=== PATIENT | male | born 1955 | race Caucasian/White ===

== ENCOUNTER → 2016-03-14 | Emergency (ER) | payer OTHER ==
[~2016-03-14] MED LIST: IBUPROFEN 600 MG TABLET (FP) PO ONE; TAMSULOSIN HCL 0.4 MG CAP.ER.24H (FP) ONE; predniSONE 20 MG TABLET (UD) ONE
[2016-03-14 11:50] VITALS: BMI 32.2
--- NOTE | 2016-03-14 14:12 | PDOC ---
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 The patient states he has been taking his medication for pain with little alleviation. The patient also reports possible increase in urinary frequency? He denies chest pain, shortness of breath, headache and dizziness. He denies fever, chills, nausea, vomit, diarrhea and constipation. He denies dysuria, frequency, urgency and hematuria. Allergies: NKDA <Alexandra Yanez - Last Filed: 03/14/16 14:25> <Renan Queen - Last Filed: 03/14/16 16:37> - General Chief Complaint: Back Pain Stated Complaint: LOWER BACK PAIN Time Seen by Provider: 03/14/16 12:43 Past History <Alexandra Yanez - Last Filed: 03/14/16 14:25> - Past Medical History Anemia: No Asthma: No Cancer: No COPD: No CHF: No Diabetes: Yes Dialysis: No GI Disorders: No Disorders: No Suicide Attempt (Hx): No Seizures: No - Surgical History Orthopedic Surgery: No - Immunization History Immunization Up to Date: Yes - Psycho/Social/Smoking Cessation Hx Anxiety: No Suicidal Ideation: No Smoking History: Never smoked Have you smoked in the past 12 months: No Number of Cigarettes Smoked Daily: 0 Information on smoking cessation initiated: No Hx Alcohol Use: No Drug/Substance Use Hx: No Substance Use Type: None <Renan Queen - Last Filed: 03/14/16 16:37> - Past Medical History Allergies/Adverse Reactions: Allergies Allergy/AdvReac Type Severity Reaction Status Date / Time No Known Allergies Allergy Verified 03/14/16 11:45 Home Medications: Ambulatory Orders NK [No Known Home Medication] 03/14/16 Review of Systems - Review of Systems Able to Perform ROS?: Yes Comments:: 03/14/16 14:25 CONSTITUTIONAL: Absent: fever, chills, diaphoresis, generalized weakness, malaise, loss of appetite HEENT: Absent: rhinorrhea, nasal congestion, throat pain, throat swelling, difficulty swallowing, mouth swelling, ear pain, eye pain, visual Changes CARDIOVASCULAR: Absent: chest pain, syncope, palpitations, irregular heart rate, lightheadedness , peripheral edema RESPIRATORY: Absent: cough, shortness of breath, dyspnea with exertion, orthopnea, wheezing, stridor, hemoptysis GASTROINTESTINAL: Absent: abdominal pain, abdominal distension, nausea, vomiting, diarrhea, constipation, melena, hematochezia GENITOURINARY: Absent: dysuria, frequency, urgency, hesitancy, hematuria, flank pain, genital pain MUSCULOSKELETAL: (+) back pain. Absent: arthralgia, joint swelling SKIN: Absent: rash, itching, pallor HEMATOLOGIC/IMMUNOLOGIC: Absent: easy bleeding, easy bruising, lymphadenopathy, frequent infections ENDOCRINE: Absent: unexplained weight gain, unexplained weight loss, heat intolerance, cold intolerance NEUROLOGIC: Absent: headache, focal weakness or paresthesias, dizziness, unsteady gait, seizure, mental status changes, bladder or bowel incontinence PSYCHIATRIC: Absent: anxiety, depression, suicidal or homicidal ideation, hallucinations. <Alexandra Yanez - Last Filed: 03/14/16 14:25> *Physical Exam - Vital Signs Last Vital Signs Temp Pulse Resp BP Pulse Ox 98.4 F 95 H 20 137/93 96 03/14/16 11:46 03/14/16 11:46 03/14/16 11:46 03/14/16 11:46 03/14/16 11:46 - Physical Exam Comments: 03/14/16 14:26 GENERAL: Well developed, well nourished. Awake and alert. No acute distress. HEENT: Normocephalic, atraumatic. PERRLA, EOMI. No conjunctival pallor. Sclera are non- icteric. Moist mucous membranes. Oropharynx is clear. NECK: Supple. Full ROM. No JVD. Carotid pulses 2+ and symmetric, without bruits. No thyromegaly. No lymphadenopathy. CARDIOVASCULAR: Regular rate and rhythm. No murmurs, rubs, or gallops. Distal pulses are 2+ and symmetric. PULMONARY: No evidence of respiratory distress. Lungs clear to auscultation bilaterally. No wheezing, rales or rhonchi. ABDOMINAL: Soft. Non-tender. Non-distended. No rebound or guarding. No organomegaly. Normoactive bowel sounds. MUSCULOSKELETAL Normal range of motion at all joints. No bony deformities or tenderness. No CVA tenderness. EXTREMITIES: No cyanosis. No clubbing. No edema. No calf tenderness. SKIN: Warm and dry. Normal capillary refill. No rashes. No jaundice. NEUROLOGICAL: Alert, awake, appropriate. Cranial nerves 2-12 intact. Normoreflexic in the upper and lower extremities. Normal speech. Toes are down-going bilaterally. Gait is normal without ataxia. PSYCHIATRIC: Cooperative. Good eye contact. Appropriate mood and affect. <Alexandra Yanez - Last Filed: 03/14/16 14:25> - Vital Signs Last Vital Signs Temp Pulse Resp BP Pulse Ox 98.4 F 95 H 20 137/93 96 03/14/16 11:46 03/14/16 11:46 03/14/16 11:46 03/14/16 11:46 03/14/16 11:46 <Renan Queen - Last Filed: 03/14/16 16:37> ED Treatment Course - ADDITIONAL ORDERS Additional order review: Laboratory Results 03/14/16 14:00 Urine Color Straw Urine Appearance Clear Urine pH 5.0 Ur Specific [place] 1.036 H Urine Protein Negative Urine Glucose (UA) 3+ H Urine Ketones 2+ H Urine Blood 1+ H Urine Nitrite Negative Urine Bilirubin Negative Urine Urobilinogen Negative Ur Leukocyte Esterase 2+ H - Medications Given in the ED: ED Medications Discontinued Medications Generic Name Dose Route Start Last Admin Trade Name Freq PRN Reason Stop Dose Admin Ibuprofen 600 mg 03/14/16 14:11 03/14/16 14:14 Motrin - PO 03/14/16 14:12 600 mg ONCE ONE Administration <Alexandra Yanez - Last Filed: 03/14/16 14:25> *DC/Admit/Observation/Transfer - Attestations Scribe Attestion: 03/14/16 14:26 Documentation prepared by Alexandra Yanez, acting as medical equipment technician for Renan Queen MD, MD <Alexandra Yanez - Last Filed: 03/14/16 14:25> - Discharge Dispostion Admit: No <Renan Queen - Last Filed: 03/14/16 16:37> Diagnosis at time of Disposition: Low back pain - Discharge Dispostion Disposition: HOME Condition at time of disposition: Stable
[2016-03-14 14:21] LABS: URINE APPEARANCE CLEAR; URINE BILIRUBIN NEGATIVE (NEGATIVE); URINE COLOR STRAW; URINE GLUCOSE (UA) 3+ (NEGATIVE); URINE KETONE 2+ (NEGATIVE); URINE NITRITE NEGATIVE (NEGATIVE); URINE PROTEIN NEGATIVE (NEGATIVE); URINE UROBILINOGEN NEGATIVE E.U./dl (0.2-1.0)
[2016-03-14 14:22] LABS: URINE BLOOD 1+ (NEGATIVE); URINE LEUK ESTERASE 2+ (NEGATIVE)
[2016-03-14 14:25] LABS: URINE MUCUS RARE; URINE RBC 15 /hpf (0-3); URINE WBC 31 /hpf (3-5)
[2016-03-14 16:37] VITALS: BP 124/70; PULSE 84; TEMP 98.3
== END | disposition home or self-care (01) ==
LOC: JERFT 11:37 → JER 11:37
DX: M54.5 Low back pain (principal); E11.9 Type 2 diabetes mellitus without complications; Z79.84 Long term (current) use of oral hypoglycemic drugs
CPT/HCPCS: 72131-TC; 81003; 81015; 87086; 99283-25

== ENCOUNTER 2017-01-31 10:36 | Emergency (ER) | payer SELFPAY ==
[2017-01-31 10:56] VITALS: BP 146/82; PULSE 94; TEMP 97.9; BMI 28.9
--- NOTE | 2017-01-31 11:32 | PDOC ---
History of Present Illness - General Chief Complaint: Eye Problem Stated Complaint: LT EYE PAIN Time Seen by Provider: 01/31/17 11:29 History Source: Patient Exam Limitations: No Limitations - History of Present Illness Initial Comments: 01/31/17 11:31 CHIEF COMPLAINT: HISTORY OF PRESENT ILLNESS: REVIEW OF SYSTEMS: GENERAL/CONSTITUTIONAL: No fever or chills. No weakness. No weight change. HEAD, EYES, EARS, NOSE AND THROAT: No change in vision. Drainage and pruritus to right eye. No ear pain or discharge. No sore throat. RESPIRATORY: No cough, wheezing, or hemoptysis. SKIN : No rash or easy bruising. NEUROLOGIC: No headache, vertigo, loss of consciousness, or loss of sensation. HEMATOLOGIC/LYMPHATIC: No lymphadenopathy ALLERGIC/IMMUNOLOGIC: No hives or skin allergy. No latex allergy. PHYSICAL EXAM: GENERAL: The patient is awake, alert, and fully oriented, in no acute distress. HEAD: Normal with no signs of trauma. EYES: Pupils equal, round and reactive to light, extraocular movements intact, sclera anicteric, conjunctiva injected, extending to limbus after fluorescein staining, no corneal abrasion noted. ENT: Ears normal, nares patent, oropharynx clear without exudates. Moist mucous membranes. NECK: Normal range of motion, supple without lymphadenopathy, JVD, or masses. LUNGS: Breath sounds equal, clear to auscultation bilaterally. No wheezes, and no crackles. NEUROLOGICAL: Cranial nerves II through XII grossly intact. Normal speech, normal gait. SKIN: No erythema no facial edema. Warm, Dry, normal turgor, no rashes or lesions noted. Past History - Past Medical History Allergies/Adverse Reactions: Allergies Allergy/AdvReac Type Severity Reaction Status Date / Time No Known Allergies Allergy Verified 01/31/17 10:53 Home Medications: Ambulatory Orders NK [No Known Home Medication] 01/31/17 Anemia: No Asthma: No Cancer: No COPD: No CHF: No Diabetes: Yes Dialysis: No GI Disorders: No Disorders: No Seizures: No - Surgical History Orthopedic Surgery: No - Immunization History Immunization Up to Date: Yes - Suicide/Smoking/Psychosocial Hx Smoking History: Never smoked Have you smoked in the past 12 months: No Number of Cigarettes Smoked Daily: 0 Hx Alcohol Use: No Drug/Substance Use Hx: No Substance Use Type: None *Physical Exam - Vital Signs Last Vital Signs Temp Pulse Resp BP Pulse Ox 97.9 F 94 H 19 146/82 97 01/31/17 10:54 01/31/17 10:54 01/31/17 10:54 01/31/17 10:54 01/31/17 10:54
--- NOTE | 2017-01-31 13:09 | PDOC ---
Attending Attestation - HPI HPI: 01/31/17 13:17 The patient is a 61 year old male with no significant PMH who presents to the emergency department with left eye tearing and a headache beginning at approximately 3PM yesterday. He also reports seeing the shadow of a person cross his vision once at 3PM yesterday, but is unable to characterize what he saw more. The patient also presents to the ED with left sided facial drooping. Allergies: NKA <Senthil Gama - Last Filed: 01/31/17 14:06> - Resident Resident Name: Hannah Faust - ED Attending Attestation I have performed the following: I have examined & evaluated the patient, The case was reviewed & discussed with the resident, I agree w/resident's findings & plan, Exceptions are as noted - Physicial Exam PE: GENERAL: Awake, alert, and fully oriented, in no acute distress HEAD: No signs of trauma EYES: PERRLA, EOMI, sclera anicteric, conjunctiva clear ENT: Auricles normal inspection, hearing grossly normal, nares patent, oropharynx clear without exudates. Moist mucosa NECK: Normal ROM, supple, no lymphadenopathy, JVD, or masses LUNGS: Breath sounds equal, clear to auscultation bilaterally. No wheezes, and no crackles HEART: Regular rate and rhythm, normal S1 and S2, no murmurs, rubs or gallops ABDOMEN: Soft, nontender, normoactive bowel sounds. No guarding, no rebound. No masses EXTREMITIES: Normal range of motion, no edema. No clubbing or cyanosis. No cords, erythema, or tenderness NEUROLOGICAL: Pt with L facial droop involving forehead. No sinus tenderness. Remainder of cranial nerves intact. Motor and sensation otherwise intact. Gait stable. SKIN: Warm, Dry, normal turgor, no rashes or lesions noted. - Medical Decision Making Sxs consistent with peripheral Zhong's palsy. The recent vision changes are unclear, and would suggest retinal pathology, as he saw a "shadow" pass by a few days ago. This does not appear to be connected to the Zhong's palsy. No symptoms of stroke. Will DC with ophtho f/u. <Marianela Judge - Last Filed: 01/31/17 16:50> NIH Stroke Scale - Last Known Well Date/Time & Onset Date Last Known Well: 01/31/17 - Initial Evaluation Level of consciousness: Alert Ask patient the month and their age: Answers both correctly Ask patient to open & close eyes; make fist and let go: Obeys both correctly Best gaze (horizontal eye movement): Normal Visual field testing: No visual field loss Facial paresis (Show teeth/raise eyebrows/close eyes tight): Complete paralysis of one or both sides (Upper and lower face) Motor Function: Left Arm: Normal Motor Function: Right Arm: Normal (extends arm 90 (or 45) degrees for 10 seconds without drift Motor Function: Left Leg: Normal (extends leg 30 degrees for 5 seconds without drift) Motor Function: Right Leg: Normal (extends leg 30 degrees for 5 seconds without drift) Limb Ataxia: No ataxia Sensory(Use pinprick test arms,legs,trunk,face/side to side): Normal Best language (Describe picture, name items, read sentences): No Aphasia Dysarthria (read several words): Normal articulation Extinction and Inattention: No abnormality - Total Score NIH Stroke Scale Score: 3 <Marianela Judge - Last Filed: 01/31/17 16:50>
--- NOTE | 2017-01-31 13:22 | PDOC ---
History of Present Illness - General Chief Complaint: Eye Problem Stated Complaint: LT EYE PAIN Time Seen by Provider: 01/31/17 11:29 History Source: Patient Exam Limitations: No Limitations - History of Present Illness Initial Comments: This is a 61 YOM with h/o uncontrolled IDDM (not on medications and no PCP presently) and thyroid surgery in 2006 who presents c/o left-sided facial droop , left eye tearing, frontal and temporal headache for the past three days. He notes that at the onset, he saw a shadowy figure pass through his vision. He had just showered and was laying down to sleep at that time. The headache started after that and ramped up to 5/10 very quickly, and has persisted at that intensity since then. The headache is located at both temples and the forehead and the top of the head. He additionally notes hot flashes, cough, runny nose, and diffuse back pain. He denies any neck pain, fever, chills, nausea, vomiting, CP, abdominal pain, SOB, dysuria, or other symptoms. NIH Stroke Scale - Last Known Well Date/Time & Onset Date Last Known Well: 01/28/17 Time Last Known Well: 03:00 - Initial Evaluation Level of consciousness: Alert Ask patient the month and their age: Answers both correctly Ask patient to open & close eyes; make fist and let go: Obeys both correctly Best gaze (horizontal eye movement): Normal Visual field testing: No visual field loss Facial paresis (Show teeth/raise eyebrows/close eyes tight): Partial paralysis ( total or near paralysis of lower face) Motor Function: Left Arm: Normal Motor Function: Right Arm: Normal (extends arm 90 (or 45) degrees for 10 seconds without drift Motor Function: Left Leg: Normal (extends leg 30 degrees for 5 seconds without drift) Motor Function: Right Leg: Normal (extends leg 30 degrees for 5 seconds without drift) Limb Ataxia: No ataxia Sensory(Use pinprick test arms,legs,trunk,face/side to side): Normal Best language (Describe picture, name items, read sentences): No Aphasia Dysarthria (read several words): Normal articulation Extinction and Inattention: No abnormality - Total Score NIH Stroke Scale Score: 2 Past History - Past Medical History Allergies/Adverse Reactions: Allergies Allergy/AdvReac Type Severity Reaction Status Date / Time No Known Allergies Allergy Verified 01/31/17 10:53 Home Medications: Ambulatory Orders NK [No Known Home Medication] 01/31/17 Anemia: No Asthma: No Cancer: No COPD: No CHF: No Diabetes: Yes Dialysis: No GI Disorders: No Disorders: No Seizures: No - Surgical History Orthopedic Surgery: No - Immunization History Immunization Up to Date: Yes - Suicide/Smoking/Psychosocial Hx Smoking History: Never smoked Have you smoked in the past 12 months: No Number of Cigarettes Smoked Daily: 0 Hx Alcohol Use: No Drug/Substance Use Hx: No Substance Use Type: None Review of Systems - Review of Systems Constitutional: Yes: Other (hot flashes). No: Chills, Fever, Unexplained wgt Loss HEENTM: Yes: Tearing (left). No: Nose Congestion, Throat Pain Respiratory: Yes: Cough. No: Shortness of Breath Cardiac (ROS): No: Chest Pain, Palpitations ABD/GI: No: Constipated, Diarrhea, Nausea, Vomiting : No: Burning, Dysuria Musculoskeletal: Yes: Back Pain. No: Neck Pain Integumentary: No: Bruising, Rash Neurological: Yes: Headache, Weakness (left face). No: Dizziness Endocrine: No: Unexplained Weight Gain, Unexplained Weight Loss *Physical Exam - Vital Signs Last Vital Signs Temp Pulse Resp BP Pulse Ox 97.9 F 94 H 19 146/82 97 01/31/17 10:54 01/31/17 10:54 01/31/17 10:54 01/31/17 10:54 01/31/17 10:54 - Physical Exam General Appearance: Yes: Nourished, Other (adult male Macedonian-speaking patient sitting in chair next to hospital bed, answering questions appropriately). No: Apparent Distress HEENT: positive: EOMI, ASHU, Normal Voice, TMs Normal, Hearing Grossly Normal, Vásquez (slight hyperpigmented 2 mm area to exterior ear just inferior/posterior to EAC opening), Other (mild bilateral temporal ttp, left eye mild scleral injection with mild tearing of the eye, left facial droop involving the frontalis concerning for Zhong's palsy). negative: Scleral Icterus (R), Scleral Icterus (L), Muffled/Hoarse voice, Pharyngeal Erythema, Nasal Congestion, Rhinorrhea, Sinus Tenderness, TM Bulging, TM Dull, TM Erythema, Lesions, Excessive drooling Neck: positive: Trachea midline, Supple. negative: Tender, Rigid Respiratory/Chest: positive: Lungs Clear, Normal Breath Sounds. negative: Respiratory Distress, Crackles, Rhonchi, Stridor, Wheezing Cardiovascular: positive: Regular Rhythm, Regular Rate. negative: Murmur Gastrointestinal/Abdominal: positive: Normal Bowel Sounds, Soft. negative: Tender, Organomegaly, Pulsatile Mass, Guarding Musculoskeletal: positive: Normal Inspection. negative: Decreased Range of Motion, Vertebral Tenderness Extremity: positive: Normal Capillary Refill, Normal Inspection, Normal Range of Motion. negative: Tender, Cyanosis Integumentary: positive: Normal Color, Dry, Warm. negative: Erythema, Rash, Bruising Neurologic: positive: single corner cutter II-XII NML intact, Fully Oriented, Alert, Normal Mood/ Affect, Normal Response, Motor Strength 5/5 Medical Decision Making - Medical Decision Making 61 YOM with uncontrolled IDDM p/w 3 days of left facial droop involving frontalis and left eye watering. Diffuse headache as well but this is mild and patient has had no additional neurological symptoms. On exam VS wnl and the patient does have exam consistent with Zhong's palsy. Left eye slight injection and tearing but acuity is symmetric bilaterally, NIH scale is 2 based on facial paresis. DDX IBNLT Zhong's palsy (idiopathic vs. Lyme disease vs. zoster, etc). CVA considered but very unlikely given the patient's frontalis involvement of the facial droop, and NIH scale. Ordered are eyedrops for lubrication. 01/31/17 14:19 The patient is not a good candidate for Prednisone therapy for this Zhong's palsy. He is not followed by a PCP and takes no medications for his diagnosis of IDDM. The risks of prednisone outweigh the benefits d/t risk of severe hyperglycemia. The patient is given visine eyedrops here in the ED and instructed to use 2 ggt OS qid. He is instructed not to rub his eye and to f/u with ophtho (phone number written on DC papers). Return precautions are discussed. *DC/Admit/Observation/Transfer Diagnosis at time of Disposition: Zhong's palsy - Discharge Dispostion Disposition: HOME Condition at time of disposition: Stable Admit: No - Referrals - Patient Instructions Printed Discharge Instructions: DI for Zhong's Palsy Additional Instructions: Carter visto en la marion emergencia por debilidad del lado izquierda de la maría elena, dolor de la jose, y natasha lloroso en la izquierda. Engle examen es consistente con un problema del nervio, que no es un estroke. No creemos que tiene un derrame cerebral o un accidente cerebrovascular. Es muy importante sequir con un oculista (doctor de los ojos). Por favor tambien use las gotas lubricantes que estamos dando. Use 2 gotas en el natasha izquierda, 4 veces al gilbert, o cuendo se siente que el natasha es muy seco. Por favor regrese para cualquier sintoma nuevo o empeoramiento carlos perdida de vision, dolor muy iftikhar que no puede controlar con Tylenol o Motrin, empeoramiento de la debilidad, erupcion cutanea dolorosa en la maría elena o del oido, o cualquier otra sintoma. Print Language: YAKUT - Post Discharge Activity
[2017-01-31] MEDS ORDERED: TETRAHYDROZOLINE HCL 1 DROP DROPS OS ONE (13:57)
[2017-01-31] MEDS ORDERED: NAPHAZOLINE/PHENIRAMINE OPHTHALMIC 15 ML BOTTLE OS PRN (15:08)
== END 2017-01-31 15:20 | disposition home or self-care (01) ==
LOC: JERFT 10:36 → JER 10:36
DX: G51.0 Bell's palsy (principal); E10.65 Type 1 diabetes mellitus with hyperglycemia
CPT/HCPCS: 99282-25

== ENCOUNTER 2018-07-17 13:49 | Emergency (ER) | payer SELFPAY ==
[2018-07-17 13:59] VITALS: BP 148/83; PULSE 112; TEMP 99.2; BMI 31.2
--- NOTE | 2018-07-17 13:59 | PDOC ---
Rapid Medical Evaluation Chief Complaint: Pain Time Seen by Provider: 07/17/18 13:56 Medical Evaluation: Allergies Allergy/AdvReac Type Severity Reaction Status Date / Time No Known Allergies Allergy Verified 07/17/18 13:56 07/17/18 13:56 I have performed a brief in-person evaluation of this patient. The patient presents with a chief complaint of: 2 weeks abd pain Pertinent physical exam findings: I have ordered the following: CBC, CMP, Etoh , Lipase/Amylase , UA The patient will proceed to the ED for further evaluation. Discharge Disposition - Diagnosis Abdominal pain - Referrals - Patient Instructions - Post Discharge Activity
[2018-07-17] MEDS ORDERED: ACETAMINOPHEN 1000 MG/100 ML VIAL (NON FORMULARY) IVPB ONE (14:24)
[2018-07-17] MEDS ORDERED: SODIUM CHLORIDE 1,000 ML IV STA ×2 (14:24→16:48)
[2018-07-17] MEDS ORDERED: ACETAMINOPHEN INJECTION 100 ML IVPB ONE (15:13)
[2018-07-17 15:29] LABS: BASO % 0.9 % (0-2.0); EOS % 1.2 % (0-4.5); HEMATOCRIT 44.3 % (35.4-49); HEMOGLOBIN 14.8 GM/dL (11.7-16.9); MCH 30.9 pg (25.7-33.7); MCHC 33.3 g/dl (32.0-35.9); MEAN CELL VOLUME 92.7 fl (80-96); MEAN PLT VOLUME 8.8 fl (7.5-11.1); MONO % 10.9 % (3.8-10.2); PLATELET COUNT 222 K/MM3 (134-434); RBC 4.78 M/mm3 (4.00-5.60); RDW 12.9 % (11.9-15.9); WHITE BLOOD COUNT 8.3 K/mm3 (4.0-10.0)
[2018-07-17 16:26] LABS: ALBUMIN 3.6 g/dl (3.4-5.0); ALK PHOS 186 U/L (45-117); BILIRUBIN,TOTAL 0.5 mg/dL (0.2-1); BLOOD UREA NITROGEN 15 mg/dL (7-18); CALCIUM 9.2 mg/dL (8.5-10.1); CHLORIDE 99 mmol/L (98-107); CO2 26 mmol/L (21-32); CREATININE 0.7 mg/dL (0.55-1.3); LIPASE 382 U/L (73-393); SGPT/ALT 26 U/L (13-61); SODIUM 130 mmol/L (136-145); TOT PROT 8.3 g/dl (6.4-8.2)
[2018-07-17 16:27] LABS: ANION GAP 6 MMOL/L (8-16); SGOT/AST 54 U/L (15-37)
[2018-07-17 16:41] LABS: GLUCOSE,RANDOM 462 mg/dL (74-106)
--- NOTE | 2018-07-17 17:21 | PDOC ---
History of Present Illness - General Chief Complaint: Pain Stated Complaint: ABDOMINAL PAIN Time Seen by Provider: 07/17/18 13:56 History Source: Patient Exam Limitations: No Limitations - History of Present Illness Travel History: No Initial Comments: 07/17/18 16:21 63-year-old male with history of alcohol abuse and diabetes presents to ED with complaints of generalized abdominal cramping greater in the epigastric region fluid past 2 weeks along with dry cough worsen night for the past week. Patient denies recent travel, recent illness, recent change in medication. Patient states does not take his diabetic medication as prescribed and periodically forgets to take it and skips a day. patient denies chest pain, shortness of breath, nausea, change in urine pattern, diarrhea but does state mild frontal headache 2 days ago which resolved after resting. Timing/Duration: reports: changing over time Quality: reports: mild, cramping Abdominal Pain Onset Location: reports: generalized abdomen Pain Radiation: reports: epigastric Activities at Onset: reports: none Aggravating Factors: improves with: None Alleviating Factors: improves with: None Past History - Past Medical History Allergies/Adverse Reactions: Allergies Allergy/AdvReac Type Severity Reaction Status Date / Time No Known Allergies Allergy Verified 07/17/18 13:56 Home Medications: Ambulatory Orders NK [No Known Home Medication] 01/31/17 Anemia: No Asthma: No Cancer: No COPD: No CHF: No Diabetes: Yes Dialysis: No GI Disorders: No Disorders: No Psychiatric Problems: Yes (drinks 2 beer daily) Seizures: No - Surgical History Orthopedic Surgery: No - Immunization History Immunization Up to Date: Yes - Suicide/Smoking/Psychosocial Hx Smoking History: Never smoked Have you smoked in the past 12 months: No Number of Cigarettes Smoked Daily: 0 Information on smoking cessation initiated: No Hx Alcohol Use: No Drug/Substance Use Hx: No Substance Use Type: None Patient Lives Alone: No Lives with/in: spouse/SO Review of Systems - Review of Systems Able to Perform ROS?: Yes Constitutional: Yes: Weakness HEENTM: No: Symptoms Reported Respiratory: Yes: Cough Cardiac (ROS): No: Symptoms Reported ABD/GI: Yes: Abdominal cramping. No: Constipated, Diarrhea, Nausea, Vomiting : No: Symptoms Reported Musculoskeletal: No: Symptoms Reported Integumentary: No: Symptoms Reported Neurological: Yes: Headache (resolved) *Physical Exam - Vital Signs Last Vital Signs Temp Pulse Resp BP Pulse Ox 99.2 F 112 H 16 148/83 100 07/17/18 13:56 07/17/18 13:56 07/17/18 13:56 07/17/18 13:56 07/17/18 13:56 ED Treatment Course - LABORATORY CBC & Chemistry Diagram: 07/17/18 15:00 07/17/18 15:00 - ADDITIONAL ORDERS Additional order review: Laboratory Results 07/17/18 15:00 Sodium 130 L Potassium No Result Required. Chloride 99 Carbon Dioxide 26 Anion Gap 6 L BUN 15 Creatinine 0.7 Est GFR (CKD-EPI)AfAm 117.22 Est GFR (CKD-EPI)NonAf 101.14 Random Glucose 462 H* Calcium 9.2 Total Bilirubin 0.5 AST 54 H ALT 26 Alkaline Phosphatase 186 H Total Protein 8.3 H Albumin 3.6 Lipase 382 07/17/18 15:00 RBC 4.78 MCV 92.7 MCHC 33.3 RDW 12.9 MPV 8.8 Neutrophils % 68.0 Lymphocytes % 19.0 D Monocytes % 10.9 H Eosinophils % 1.2 Basophils % 0.9 - RADIOLOGY Radiology Studies Ordered: Category Date Time Status ABDOMEN & PELVIS CT WITH CONTR [CT] Stat CT Scan 07/17/18 14:59 Ordered - Medications Given in the ED: ED Medications Discontinued Medications Generic Name Dose Route Start Last Admin Trade Name Freq PRN Reason Stop Dose Admin Acetaminophen 1,000 mg 07/17/18 14:24 07/17/18 15:20 Ofirmev Injection - IVPB 07/17/18 14:25 1,000 mg ONCE ONE Administration Sodium Chloride 1,000 mls @ 1,000 mls/hr 07/17/18 14:24 07/17/18 15:20 Normal Saline - IV 07/17/18 15:23 1,000 mls/hr ASDIR STA Administration Medical Decision Making - Medical Decision Making 07/17/18 16:26 Chief complaint: Abdominal pain for the past 2 weeks without fever, chills but states has had a dry cough at night for the past week and had of episodic headache 3 days ago patient is a diabetic but feels to take his medication on a daily basis. Patient also drinks daily Exam. Patient is not intoxicated but with noted mildly elevated heart rate and blood pressure without positive DTs Plan: Likely dehydrated will order labs, urine, IV fluids and abdominal CT 07/17/18 17:27 Laboratory Tests 07/17/18 07/17/18 15:00 15:00 Random Glucose 462 H* Total Bilirubin 0.5 AST 54 H ALT 26 Alkaline Phosphatase 186 H Total Protein 8.3 H Lipase 382 Influenza A (Rapid) Negative Influenza B (Rapid) Negative Laboratory Tests 07/17/18 15:00 WBC 8.3 Hgb 14.8 Hct 44.3 MCV 92.7 Absolute Neuts (auto) 5.6 Monocytes % 10.9 H 07/17/18 17:27 *DC/Admit/Observation/Transfer Diagnosis at time of Disposition: Abdominal pain - Referrals - Patient Instructions - Post Discharge Activity
[2018-07-17 17:22] LABS: URINE APPEARANCE CLEAR; URINE BILIRUBIN NEGATIVE (NEGATIVE); URINE COLOR YELLOW; URINE GLUCOSE (UA) 3+ (NEGATIVE); URINE KETONE NEGATIVE (NEGATIVE); URINE LEUK ESTERASE NEGATIVE (NEGATIVE); URINE NITRITE NEGATIVE (NEGATIVE); URINE PROTEIN NEGATIVE (NEGATIVE); URINE UROBILINOGEN 0.2 mg/dL (0.2-1.0)
[2018-07-17 18:18] LABS: BILIRUBIN,TOTAL 0.4 mg/dL (0.2-1); CALCIUM 7.8 mg/dL (8.5-10.1); CREATININE 0.5 mg/dL (0.55-1.3); POTASSIUM 3.5 mmol/L (3.5-5.1); TOT PROT 6.5 g/dl (6.4-8.2)
--- NOTE | 2018-07-17 19:56 | PDOC ---
*Physical Exam - Vital Signs Last Vital Signs Temp Pulse Resp BP Pulse Ox 99.2 F 112 H 16 148/83 100 07/17/18 13:56 07/17/18 13:56 07/17/18 13:56 07/17/18 13:56 07/17/18 13:56 - Physical Exam General Appearance: Yes: Appropriately Dressed. No: Apparent Distress HEENT: positive: Normal ENT Inspection Neck: positive: Trachea midline Respiratory/Chest: positive: Lungs Clear, Normal Breath Sounds. negative: Respiratory Distress, Accessory Muscle Use Cardiovascular: positive: Regular Rhythm, Regular Rate. negative: Edema, Murmur Gastrointestinal/Abdominal: positive: Normal Bowel Sounds, Soft, Tenderness ( mild epigastric) Musculoskeletal: positive: Normal Inspection. negative: CVA Tenderness ED Treatment Course - LABORATORY CBC & Chemistry Diagram: 07/17/18 15:00 07/17/18 17:00 - ADDITIONAL ORDERS Additional order review: Laboratory Results 07/17/18 07/17/18 07/17/18 17:00 15:00 14:30 Sodium 138 130 L Potassium 3.5 No Result Required. Chloride 106 99 Carbon Dioxide 24 26 Anion Gap 7 L 6 L BUN 13 15 Creatinine 0.5 L 0.7 Est GFR (CKD-EPI)AfAm 134.61 117.22 Est GFR (CKD-EPI)NonAf 116.14 101.14 Random Glucose 311 H* 462 H* Calcium 7.8 L 9.2 Total Bilirubin 0.4 0.5 AST 11 L 54 H ALT 19 26 Alkaline Phosphatase 139 H 186 H Total Protein 6.5 8.3 H Albumin 3.0 L 3.6 Lipase 382 Urine Color Yellow Urine Appearance Clear Urine pH 6.0 Ur Specific [facility] 1.038 H Urine Protein Negative Urine Glucose (UA) 3+ H Urine Ketones Negative Urine Blood Negative Urine Nitrite Negative Urine Bilirubin Negative Urine Urobilinogen 0.2 Ur Leukocyte Esterase Negative 07/17/18 15:00 RBC 4.78 MCV 92.7 MCHC 33.3 RDW 12.9 MPV 8.8 Neutrophils % 68.0 Lymphocytes % 19.0 D Monocytes % 10.9 H Eosinophils % 1.2 Basophils % 0.9 - Medications Given in the ED: ED Medications Discontinued Medications Generic Name Dose Route Start Last Admin Trade Name Freq PRN Reason Stop Dose Admin Acetaminophen 1,000 mg 07/17/18 14:24 07/17/18 15:20 Ofirmev Injection - IVPB 07/17/18 14:25 1,000 mg ONCE ONE Administration Sodium Chloride 1,000 mls @ 1,000 mls/hr 07/17/18 14:24 07/17/18 15:20 Normal Saline - IV 07/17/18 15:23 1,000 mls/hr ASDIR STA Administration Sodium Chloride 1,000 mls @ 1,000 mls/hr 07/17/18 16:48 07/17/18 16:53 Normal Saline - IV 07/17/18 17:47 1,000 mls/hr ASDIR STA Administration Medical Decision Making - Medical Decision Making 07/17/18 20:12 CT scan is read by Dr. Mejia: Several mildly dilated small bowel loops are seen within the upper abdomen centrally which could represent a mild ileus versus secondary to aerophagia. No gastric distention is visualized. Small right inguinal hernia containing fat only. Very small umbilical hernia containing fat only. Diffuse hepatic steatosis is noted which is probably improve comparison to a prior CT study of 07/02/14. Oral trial Reassess 07/17/18 20:32 Patient able to tolerate by mouth's without difficulty. I will discharge the patient home to follow-up with his primary doctor for continued blood sugar management. I discussed the physical exam findings, ancillary test results and final diagnoses with the patient. I answered all of the patient's questions. The patient was satisfied with the care received and felt comfortable with the discharge plan and treatment plan. The patient will call their primary care physician within 24 hours to arrange follow-up and will return to the Emergency Department with any new, persistent or worsening symptoms. *DC/Admit/Observation/Transfer Diagnosis at time of Disposition: Cough in adult patient Abdominal pain Qualifiers: Abdominal location: upper abdomen, unspecified Qualified Code(s): R10.10 - Upper abdominal pain, unspecified - Discharge Dispostion Disposition: HOME Condition at time of disposition: Stable - Referrals - Patient Instructions Additional Instructions: Avoid alcoholic beverages. Make sure to take your diabetes medication every day as prescribed. Make an appointment with her primary doctor for reevaluation within 7 days. Return to emergency department for any new or worsening symptoms. Thank you very much for choosing us provider emergent health care needs. Evite las bebidas alcohlicas. Asegrese de merary cooney medicamento para la diabetes todos los senior segn lo prescrito. Roldan jennifer josr con cooney mdico de cabecera para cooney reevaluacin dentro de los 7 senior. Regrese al departamento de emergencias para cualquier sntoma nuevo o que empeore. Muchas alice por elegirnos carlos proveedor de atencin mdica de emergencia. - Post Discharge Activity
== END 2018-07-17 20:57 | disposition home or self-care (01) ==
LOC: JER 13:49
PROC: 3E0337Z Introduction of Electrolytic and Water Balance Substance into Peripheral Vein, Percutaneous Approach (ICD-10-PCS; principal; 2018-07-17)
PROC: 3E033NZ Introduction of Analgesics, Hypnotics, Sedatives into Peripheral Vein, Percutaneous Approach (ICD-10-PCS; 2018-07-17)
DX: R10.10 Upper abdominal pain, unspecified (principal); R05 Cough; E11.9 Type 2 diabetes mellitus without complications; F10.10 Alcohol abuse, uncomplicated; Z91.14 Patient's other noncompliance with medication regimen
CPT/HCPCS: 36415; 74177-TC; 80053; 81003; 83690; 85025; 87086; 87804; 99282-25; J0131; J7030